=== PATIENT | female | born 1940 | race Caucasian/White ===

== ENCOUNTER → 2018-01-07 | Emergency (ER) | payer MEDICARE, OTHER ==
[~2018-01-07] VITALS: Ht 167.6 cm; Wt 75.0 kg
[~2018-01-07] MED LIST: ATEN50TA PO
[2018-01-07 03:32] VITALS: BP_SYST 170
== END | disposition home or self-care (01) ==
LOC: ER 03:32
DX: Z00.00 Encounter for general adult medical examination without abnormal findings (principal); G89.4 Chronic pain syndrome; E11.9 Type 2 diabetes mellitus without complications; I25.2 Old myocardial infarction; Z59.0 Homelessness; Z56.0 Unemployment, unspecified
CPT/HCPCS: 99283

== ENCOUNTER 2018-01-08 07:12 | Emergency (ER) | payer MEDICARE, OTHER ==
[~2018-01-08] VITALS: Ht 165.1 cm; Wt 100.0 kg
[2018-01-08 08:30] LABS: BASOPHILS # (AUTO) 0.1 X10'3 (0-0.2); BASOPHILS % (AUTO) 0.7 % (0-1); EOSINOPHILS # (AUTO) 0.1 X10'3 (0-0.9); EOSINOPHILS % (AUTO) 0.8 % (0-6); HEMATOCRIT 30.1 % (35.0-45.0); HEMOGLOBIN 9.1 g/dl (12.0-16.0); LYMPHOCYTES # (AUTO) 2.4 X10'3 (1.1-4.8); LYMPHOCYTES % (AUTO) 29.2 % (21-51); MEAN CORPUSCULAR HGB CONC 30.1 % (33.0-36.5); MEAN CORPUSCULAR VOLUME 76.5 FL (78-98); MEAN PLATELET VOLUME 8.4 FL (7.4-10.4); MONOCYTES # (AUTO) 0.6 X10'3 (0-0.9); MONOCYTES % (AUTO) 7.1 % (2-12); NEUTROPHILS # (AUTO) 5.1 X10'3 (1.8-7.7); NEUTROPHILS % (AUTO) 62.2 % (42-75); PLATELET COUNT 354 X10'3 (140-440); RED BLOOD COUNT 3.93 X10'6 (4.20-5.60); WHITE BLOOD COUNT 8.2 X10'3 (4.5-11.0)
[2018-01-08] MEDS ORDERED: diphenhydrAMINE 25mg capsule PO ONE (08:40)
[2018-01-08] MEDS ORDERED: LORazepam 1 MG tablet PO ONE (08:40)
[2018-01-08 08:45] LABS: ALANINE AMINOTRANSFERASE 21 U/L (12-78); ALBUMIN 3.5 G/DL (3.4-5.0); ALKALINE PHOSPHATASE 71 IU/L (46-116); ANION GAP 9 (8-16); ASPARTATE AMINO TRANSFERASE 23 U/L (10-37); BILIRUBIN,TOTAL 0.3 MG/DL (0.1-1.0); BLOOD UREA NITROGEN 19 MG/DL (7-18); BUN/CREATININE RATIO 35.2 (6.6-38.0); CALCIUM 9.2 MG/DL (8.5-10.1); CHLORIDE 107 MMOL/L (99-107); CREATININE 0.54 MG/DL (0.40-0.90); GLUCOSE 95 MG/DL (70-104); POTASSIUM 4.4 MMOL/L (3.5-5.1); SODIUM 142 MMOL/L (135-145); TOTAL CARBON DIOXIDE 26.3 MMOL/L (24-32); eGFR > 90 ML/MIN
[2018-01-08 08:45] LABS: URINE AMPHETAMINE SCREEN NEGATIVE (Neg); URINE BARBITUATE SCREEN NEGATIVE (Neg); URINE BENZODIAZEPINES SCREEN NEGATIVE (Neg); URINE CANNABINOID SCREEN NEGATIVE (Neg); URINE COCAINE SCREEN NEGATIVE (Neg); URINE METHADONE SCREEN NEGATIVE (Neg); URINE OPIATE SCREEN NEGATIVE (Neg); URINE PHENCYCLIDINE SCREEN NEGATIVE (Neg)
[2018-01-08 08:54] LABS: ETHANOL < 0.010 GM/DL (0.0-0.010)
[2018-01-08] MEDS ORDERED: ATEN50TA PO (08:57)
[2018-01-08 09:20] LABS: ANISOCYTOSIS 2+; LARGE PLATELETS FEW; PLATELET ESTIMATE NORMAL
[2018-01-08 09:21] LABS: HYPOCHROMASIA 1+; TARGET CELLS FEW
[2018-01-08] MEDS ORDERED: atenolol 50mg tablet PO ONE (13:20)
[2018-01-09] MEDS: acetaminophen 325mg tablet PO PRN ×4 (02:36→18:59)
[2018-01-09] MEDS: atenolol 50mg tablet PO SCH (07:25)
[2018-01-09] MEDS ORDERED: haloperidol lactate 5mg/ml inj IM ONE (15:10)
[2018-01-10] MEDS: acetaminophen 325mg tablet PO PRN ×5 (00:54→19:55)
[2018-01-10] MEDS: atenolol 50mg tablet PO SCH (07:10)
[2018-01-10 09:30] VITALS: BP_DIAS 62
[2018-01-10 10:02] LABS: BASOPHILS % (AUTO) 0.3 % (0-1); EOSINOPHILS # (AUTO) 0.1 X10'3 (0-0.9); HEMATOCRIT 28.4 % (35.0-45.0); HEMOGLOBIN 8.7 g/dl (12.0-16.0); LYMPHOCYTES # (AUTO) 1.4 X10'3 (1.1-4.8); LYMPHOCYTES % (AUTO) 20.5 % (21-51); MEAN CORPUSCULAR HEMOGLOBIN 23.1 PG (27.0-31.0); MEAN CORPUSCULAR HGB CONC 30.5 % (33.0-36.5); MEAN CORPUSCULAR VOLUME 75.8 FL (78-98); MEAN PLATELET VOLUME 8.2 FL (7.4-10.4); MONOCYTES # (AUTO) 0.6 X10'3 (0-0.9); NEUTROPHILS # (AUTO) 4.8 X10'3 (1.8-7.7); NEUTROPHILS % (AUTO) 68.2 % (42-75); PLATELET COUNT 352 X10'3 (140-440); RED BLOOD COUNT 3.74 X10'6 (4.20-5.60); RED CELL DISTRIBUTION WIDTH 20.3 % (11.5-14.5)
[2018-01-10 10:17] LABS: ALANINE AMINOTRANSFERASE 17 U/L (12-78); ALBUMIN 3.2 G/DL (3.4-5.0); ALBUMIN/GLOBULIN RATIO 0.9 (1.1-1.5); ALKALINE PHOSPHATASE 77 IU/L (46-116); ANION GAP 8 (8-16); ASPARTATE AMINO TRANSFERASE 20 U/L (10-37); BILIRUBIN,TOTAL 0.2 MG/DL (0.1-1.0); BLOOD UREA NITROGEN 19 MG/DL (7-18); BUN/CREATININE RATIO 24.1 (6.6-38.0); CALCIUM 9.2 MG/DL (8.5-10.1); CHLORIDE 106 MMOL/L (99-107); CREATININE 0.79 MG/DL (0.40-0.90); GLUCOSE 112 MG/DL (70-104); POTASSIUM 4.4 MMOL/L (3.5-5.1); SODIUM 141 MMOL/L (135-145); TOTAL CARBON DIOXIDE 27.3 MMOL/L (24-32); TOTAL PROTEIN 6.6 G/DL (6.4-8.2); eGFR 71 ML/MIN
[2018-01-10 10:31] LABS: PARTIAL THROMBOPLASTIN TIME 23 SECONDS (22-32); PROTHROMBIN TIME 9.7 SECONDS (9.0-12.0)
[2018-01-10 12:09] LABS: ANISOCYTOSIS 2+; HYPOCHROMASIA 1+; MICROCYTOSIS 1+; PLATELET ESTIMATE NORMAL; POLYCHROMASIA 1+
[2018-01-10 12:10] LABS: ELLIPTOCYTES FEW; TEAR DROP CELLS FEW
[2018-01-11] MEDS: acetaminophen 325mg tablet PO PRN ×3 (01:03→09:04)
[2018-01-11 09:05] VITALS: BP_SYST 145
[2018-01-11] MEDS: atenolol 50mg tablet PO SCH (09:05)
== END 2018-01-11 11:34 | disposition home or self-care (01) ==
LOC: ER 07:13
DX: R45.851 Suicidal ideations (principal); M79.89 Other specified soft tissue disorders; I25.2 Old myocardial infarction; E11.9 Type 2 diabetes mellitus without complications; I50.9 Heart failure, unspecified; G89.29 Other chronic pain; Z59.0 Homelessness; Z56.0 Unemployment, unspecified; Z79.899 Other long term (current) drug therapy
CPT/HCPCS: 36415; 80053; 80305; 80320; 82948; 84443; 84484; 85025; 85610; 85730; 96372; 99285; J1630

== ENCOUNTER 2018-01-16 21:15 | Emergency (ER) | payer MEDICARE, BC ==
[~2018-01-16] VITALS: Ht 142.2 cm; Wt 54.5 kg
[2018-01-16 21:30] VITALS: BP 146/71
[2018-01-16] MEDS ORDERED: HYDROcodone/acetaminophen 5mg/325mg tablet PO ONE (22:05)
[2018-01-16] MEDS ORDERED: succinylcholine 20mg/ml inj IV ONE (22:42)
== END 2018-01-16 22:55 | disposition home or self-care (01) ==
LOC: ER 21:15
DX: G89.29 Other chronic pain (principal); M54.9 Dorsalgia, unspecified; M54.2 Cervicalgia; I25.2 Old myocardial infarction; E11.9 Type 2 diabetes mellitus without complications; Z86.69 Personal history of other diseases of the nervous system and sense organs; Z60.2 Problems related to living alone; Z59.0 Homelessness; Z56.0 Unemployment, unspecified; Z79.899 Other long term (current) drug therapy
CPT/HCPCS: 99282; J0330